=== PATIENT | female | born 1995 | race Caucasian/White ===

== ENCOUNTER 2019-10-11 10:46 | Emergency (ER) | payer BC ==
[~2019-10-11] VITALS: Ht 172.7 cm; Wt 49.9 kg
--- NOTE | 2019-10-11 11:09 | NUR ---
ED Nurse Note: Pt ambulated to ed with [facility]. pt states having opiate withdrawal symptoms starting from 10/07/2019 after 5 day taper medication. pt reports no sleep for 3 days, body tremors, vomiting "water".
[2019-10-11 11:11] VITALS: BP 126/88
--- NOTE | 2019-10-11 12:10 | Emergency Room Report ---
History of Present Illness General Chief Complaint: General Complaint Source: Patient Present Illness HPI Patient is a 23-year-old female who presents after increased generalized body tremors as well as decreased ability to sleep. She had gradual onset of symptoms over the past few days. She had associated body tremors and had recently entered a program for detox of Suboxone. Previous had been using heroin. Had not been using any opiates for greater than 4 days. Denies any diarrhea. Allergies: Coded Allergies: No Known Allergies (Unverified , 10/11/19) Patient History Past Medical History: see triage record Last Menstrual Period: unknown Reviewed Nursing Documentation: PMH: Agreed; PSxH: Agreed Nursing Documentation-PMH Past Medical History: No History, Except For Review of Systems All Other Systems: negative except mentioned in HPI Physical Exam Vital Signs Date Time Temp Pulse Resp B/P (MAP) Pulse Ox O2 Delivery O2 Flow Rate FiO2 10/11/19 10:57 98.6 91 18 126/88 (101) 99 Room Air Sp02 EP Interpretation: reviewed, normal General Appearance: normal inspection, well appearing, no apparent distress, alert, GCS 15 Head: atraumatic ENT: normal ENT inspection, hearing grossly normal, normal voice Neck: normal inspection, full range of motion, supple, no bony tend Respiratory: normal inspection, lungs clear, normal breath sounds, no respiratory distress, no retraction, no wheezing Cardiovascular #1: regular rate, rhythm, no edema Gastrointestinal: normal inspection, normal bowel sounds, non tender, soft, no guarding, no hernia Genitourinary: no CVA tenderness Musculoskeletal: normal inspection, back normal, normal range of motion Neurologic: alert, motor strength/tone normal, senior compliance analyst III-XII nml as tested, oriented x3, responsive, speech normal, other - Intermittent twitching Psychiatric: normal inspection, judgement/insight normal, mood/affect normal Medical Decision Making Diagnostic Impression: Primary Impression: Medication reaction Additional Impression: Urinary tract infection ER Course Patient presented for increased generalized body twitching. Differential diagnosis includes not limited to medication withdrawal, extrapyramidal syndrome , dystonic reaction, akathisia among others. Because of complexity of patient' s case laboratory tests and were ordered. Patient was given IV Benadryl for it appears to be a medication induced reaction versus a anxiety reaction. Patient had subsequent resolution of her symptoms. Patient is not showing any hyperreflexia or abnormal neurologic findings other than intermittent twitching episodes . urinalysis did show some evidence of urinary tract infection. Patient was given prescription for oral antibiotics. Patient appears to be stable for outpatient follow-up. She was advised to discontinue her medication which she is currently taking for sleep. She was advised to follow-up with her psychiatrist for reexamination in the next 1 to 2 days. She is advised to return if worse. Labs Test 10/11/19 11:15 10/11/19 12:14 Urine Color Yellow Urine Appearance Clear Urine pH 6 (4.5-8.0) Urine Specific Roark 1.025 (1.005-1.035) Urine Protein 2+ (NEGATIVE) Urine Glucose (UA) Negative (NEGATIVE) Urine Ketones 3+ (NEGATIVE) Urine Blood 1+ (NEGATIVE) Urine Nitrite Negative (NEGATIVE) Urine Bilirubin Negative (NEGATIVE) Urine Urobilinogen Normal MG/DL (0.0-1.0) Urine Leukocyte Esterase 3+ (NEGATIVE) Urine RBC 10-15 /HPF (0 - 2) Urine WBC 10-15 /HPF (0 - 2) Urine Squamous Epithelial Cells Few /LPF (NONE/OCC) Urine Bacteria Few /HPF (NONE) Urine HCG, Qualitative Negative (NEGATIVE) White Blood Count 8.5 K/UL (4.8-10.8) Red Blood Count 4.33 M/UL (4.20-5.40) Hemoglobin 13.5 G/DL (12.0-16.0) Hematocrit 39.4 % (37.0-47.0) Mean Corpuscular Volume 91 FL (80-99) Mean Corpuscular Hemoglobin 31.1 PG (27.0-31.0) Mean Corpuscular Hemoglobin Concent 34.2 G/DL (32.0-36.0) Red Cell Distribution Width 11.7 % (11.6-14.8) Platelet Count 282 K/UL (150-450) Mean Platelet Volume 6.7 FL (6.5-10.1) Neutrophils (%) (Auto) 67.2 % (45.0-75.0) Lymphocytes (%) (Auto) 26.8 % (20.0-45.0) Monocytes (%) (Auto) 4.7 % (1.0-10.0) Eosinophils (%) (Auto) 0.2 % (0.0-3.0) Basophils (%) (Auto) 1.1 % (0.0-2.0) Sodium Level 141 MMOL/L (136-145) Potassium Level 3.9 MMOL/L (3.5-5.1) Chloride Level 106 MMOL/L (98-107) Carbon Dioxide Level 23 MMOL/L (21-32) Blood Urea Nitrogen 15 mg/dL (7-18) Creatinine 0.5 MG/DL (0.55-1.30) Estimat Glomerular Filtration Rate > 60 mL/min (>60) Glucose Level 98 MG/DL (74-106) Calcium Level 9.5 MG/DL (8.5-10.1) Total Bilirubin 0.5 MG/DL (0.2-1.0) Aspartate Amino Transf (AST/SGOT) 14 U/L (15-37) Alanine Aminotransferase (ALT/SGPT) 15 U/L (12-78) Alkaline Phosphatase 41 U/L (46-116) Total Protein 8.2 G/DL (6.4-8.2) Albumin 4.2 G/DL (3.4-5.0) Globulin 4.0 g/dL Albumin/Globulin Ratio 1.0 (1.0-2.7) Thyroid Stimulating Hormone (TSH) 0.921 uiU/mL (0.358-3.740) Last Vital Signs Date Time Temp Pulse Resp B/P (MAP) Pulse Ox O2 Delivery O2 Flow Rate FiO2 10/11/19 11:11 91 18 Room Air 10/11/19 11:11 98.6 126/88 99 Status: improved Disposition: HOME, SELF-CARE Condition: Stable Scripts Cephalexin* (KEFLEX*) 500 Mg Capsule 500 MG ORAL EVERY 6 HOURS, #28 CAP Prov: Vini Dawson MD 10/11/19 Diphenhydramine Hcl (BENADRYL ALLERGY) 25 Mg Tablet 25 MG PO Q6HR, #10 TAB Prov: Vini Dawson MD 10/11/19 Vini Dawson MD Oct 11, 2019 12:10
[2019-10-11] MEDS ORDERED: DiphenhydrAMINE 50mg/ml Inj IVP ONE (12:15)
--- NOTE | 2019-10-11 12:26 | NUR ---
ED Nurse Note: blood work sent to lab
[2019-10-11 12:35] LABS: BASOPHILS % (AUTO) 1.1 % (0.0-2.0); EOSINOPHILS % (AUTO) 0.2 % (0.0-3.0); HEMATOCRIT 39.4 % (37.0-47.0); HEMOGLOBIN 13.5 G/DL (12.0-16.0); LYMPHOCYTES % (AUTO) 26.8 % (20.0-45.0); MEAN CORPUSCULAR VOLUME 91 FL (80-99); MONOCYTES % (AUTO) 4.7 % (1.0-10.0); NEUTROPHILS % (AUTO) 67.2 % (45.0-75.0); PLATELET COUNT 282 K/UL (150-450); RED BLOOD COUNT 4.33 M/UL (4.20-5.40); RED CELL DISTRIBUTION WIDTH 11.7 % (11.6-14.8); WHITE BLOOD COUNT 8.5 K/UL (4.8-10.8)
[2019-10-11 12:46] LABS: APPEARANCE,URINE CLEAR; BILIRUBIN, URINE NEGATIVE (NEGATIVE); GLUCOSE, URINE (UA) NEGATIVE (NEGATIVE); KETONES,URINE 3+ (NEGATIVE); LEUKOCYTE ESTERASE ,URINE 3+ (NEGATIVE); NITRITE,URINE NEGATIVE (NEGATIVE); PH,URINE 6 (4.5-8.0); PROTEIN,URINE 2+ (NEGATIVE); UROBILINOGEN,URINE NORMAL MG/DL (0.0-1.0)
[2019-10-11 12:50] LABS: COLOR,URINE YELLOW
[2019-10-11 13:00] LABS: ALANINE AMINOTRANSFERASE 15 U/L (12-78); ALBUMIN 4.2 G/DL (3.4-5.0); ALKALINE PHOSPHATASE 41 U/L (46-116); ASPARTATE AMINO TRANSFERASE 14 U/L (15-37); BILIRUBIN,TOTAL 0.5 MG/DL (0.2-1.0); BLOOD UREA NITROGEN 15 mg/dL (7-18); CALCIUM 9.5 MG/DL (8.5-10.1); CARBON DIOXIDE 23 MMOL/L (21-32); CREATININE 0.5 MG/DL (0.55-1.30)
[2019-10-11] MEDS ORDERED: Dextrose 5%/Lactated Ringer's 1,000 ML IV SCH (13:00)
[2019-10-11 13:04] LABS: CHLORIDE 106 MMOL/L (98-107); POTASSIUM 3.9 MMOL/L (3.5-5.1); SODIUM 141 MMOL/L (136-145)
[2019-10-11] MEDS ORDERED: BENADRYL ALLERG25 M1 PO (13:12)
[2019-10-11] MEDS ORDERED: CEPHALEXIN500 MG ORAL (13:12)
[2019-10-11] MEDS ORDERED: cefTRIAXone 1 GM in NS 55 ML IVPB ONE (13:15)
[2019-10-11 13:46] VITALS: BP 120/79
--- NOTE | 2019-10-11 13:47 | NUR ---
ER DISCHARGE NOTE: Patient is cleared to be discharged per ERMD, pt is aox4, on room air, with stable vital signs. pt was given dc and prescription instructions, pt was able to verbalize understanding, pt id band and iv site removed without complications. pt is able to ambulate with steady gait. pt took all belongings.
== END 2019-10-11 15:47 | disposition home or self-care (01) ==
LOC: EMR 11:00
DX: G25.2 Other specified forms of tremor (principal)
CPT/HCPCS: 36415; 80053; 81001; 81025; 84443; 85025; 87086; 96361; 96365; 96375; 99284; J0696; J1200